=== PATIENT | female | born 1980 | race Caucasian/White ===

== ENCOUNTER 2020-12-06 06:57 | Day surgery (SDC) | payer OTHER, SELFPAY ==
[~2020-12-06] VITALS: Ht 162.6 cm; Wt 69.4 kg
[2020-12-06] MEDS ORDERED: MIDAZOLAM 5 MG/5 ML VIAL ONE (08:40)
[2020-12-06] MEDS ORDERED: fentaNYL citrate 0.05 MG/ML VIAL ONE (08:40)
[2020-12-06] MEDS ORDERED: diphenhydrAMINE 50 MG/ML VIAL ONE (08:40)
[2020-12-06] MEDS ORDERED: fentaNYL citrate 0.05 MG/ML VIAL IVP ONE (10:05)
[2020-12-06] MEDS ORDERED: MIDAZOLAM 2 MG/2 ML VIAL IVP ONE (10:05)
== END 2020-12-06 09:35 | disposition home or self-care (01) ==
LOC: MDS 06:57 → MMU 06:58 → MDS 09:35
PROVIDERS: ATTEND Internal Medicine Gastroenterology
DX: K30 Functional dyspepsia (principal); K29.80 Duodenitis without bleeding; D25.9 Leiomyoma of uterus, unspecified; K59.00 Constipation, unspecified; Z98.51 Tubal ligation status; Z79.899 Other long term (current) drug therapy; Z20.822 Contact with and (suspected) exposure to COVID-19
CPT/HCPCS: 43239; J2250; J3010; U0003; J1200